=== PATIENT | female | born 1955 | race Caucasian/White ===

== ENCOUNTER 2017-08-07 13:40 | Emergency (ER) | payer BC, OTHER ==
[~2017-08-07] VITALS: Ht 165.1 cm; Wt 76.4 kg
[2017-08-07 13:56] VITALS: BP 111/75
[2017-08-07] MEDS ORDERED: KETOROLAC TROMETH 60MG/2ML VIAL IM ONE (15:30)
== END 2017-08-07 15:37 | disposition home or self-care (01) ==
LOC: ER 13:43
DX: S90.31XA Contusion of right foot, initial encounter (principal); Z88.5 Allergy status to narcotic agent; Z88.2 Allergy status to sulfonamides; Z88.8 Allergy status to other drugs, medicaments and biological substances; Z86.73 Personal history of transient ischemic attack (TIA), and cerebral infarction without residual deficits; M32.9 Systemic lupus erythematosus, unspecified; F17.210 Nicotine dependence, cigarettes, uncomplicated; W01.198A Fall on same level from slipping, tripping and stumbling with subsequent striking against other object, initial encounter; Y93.89 Activity, other specified; Y92.89 Other specified places as the place of occurrence of the external cause; Y99.8 Other external cause status
CPT/HCPCS: 73630; 96372; 99284; J1885

== ENCOUNTER 2017-08-17 12:39 | Emergency (ER) | payer BC ==
[~2017-08-17] VITALS: Ht 165.1 cm; Wt 78.0 kg
[2017-08-17 13:00] VITALS: BP 102/75
== END 2017-08-17 16:10 | disposition left against medical advice (07) ==
LOC: ER 12:46
DX: M79.671 Pain in right foot (principal); Z53.21 Procedure and treatment not carried out due to patient leaving prior to being seen by health care provider